=== PATIENT | male | born 1965 | race African-American/Black ===

== ENCOUNTER 2017-02-25 11:14 | Emergency (ER) | payer BC ==
[~2017-02-25] VITALS: Ht 190.5 cm; Wt 99.8 kg
[2017-02-25 11:14] VITALS: BP 160/95
--- NOTE | 2017-02-25 12:30 | NUR ---
TO ER BED 10,NO APPARENT CHANGE IN CONDITION
[2017-02-25] MEDS ORDERED: IBUP-1482 PO (12:42)
[2017-02-25] MEDS ORDERED: ACET1TAB23 PO (12:42)
[2017-02-25] MEDS ORDERED: CARI350T27 PO (12:42)
[2017-02-25] MEDS ORDERED: DIAZEPAM 5 MG TABLET ONE (13:00)
[2017-02-25] MEDS ORDERED: DIAZEPAM 5 MG TABLET PO ONE (13:00)
== END 2017-02-25 13:30 | disposition home or self-care (01) ==
LOC: ER 11:16
DX: M62.838 Other muscle spasm (principal); W10.9XXA Fall (on) (from) unspecified stairs and steps, initial encounter; Y92.89 Other specified places as the place of occurrence of the external cause; Y93.89 Activity, other specified; Y99.8 Other external cause status
CPT/HCPCS: 99283; A4606; Z7610